=== PATIENT | female | born 1980 | race Caucasian/White ===

== ENCOUNTER 2018-03-03 21:11 | Inpatient (IN) | payer BC ==
--- NOTE | 2018-03-03 21:52 | HP ---
General Information - Reason for Visit IUP at 41 in labor - General Information Maternal Age: 37 Grav: 1 Para: 0 SAB: 0 IEA: 0 Estimated Due Date: 02/22/18 Determined By: LMP Gestational Age in Weeks/Days: 41 Maternal Blood Type and Rh: O Positive - Results this Serology/RPR Result: Non-Reactive Rubella Result: Immune HBsAg Result: Negative HIV Result: Negative GBS Culture Result: Negative Past Medical History Delivery History: See Records Delivery History Comment: primip Pertinent Past Medical History: Non-Contributory Pertinent Past Surgical History: None Family History Comment: Father: A-Fib Mother: HTN Brother: HTN Sister: Endometriosis PGF: . Stroke MGF: . [place] - Antepartal Records Antepartal Records: Reviewed, Uncomplicated Review of Systems Constitutional: Uncomfortable - with UCs CV Complaint: No Respiratory: Shortness of Breath: No Gastrointestinal: No Nausea/Vomiting, Normal Bowel Movement Genitourinary: No Dysuria, No Leaking Fluid, Spotting Musculoskeletal: No Epigastric Pain, Contractions Neurological: No Headache, No Visual Changes Movement: Normal Exam Allergies/Adverse Reactions: Allergies No Known Allergies Allergy (Verified 03/03/18 21:28) BP 154/94, 139/96, 147/84 HR 89 T 98.5 - Measurements Height: 5 ft 6 in Weight: 163 lb Weight in lbs: [id number] Body Mass Index (BMI): 26.3 Pre- Weight: 130 lb Weight Gained This : 33 lbs and 0 ozs - Exam Breast: Breast Exam Deferred CVA: No CVA Tenderness Extremities: No Edema Heart: Normal Rhythm/Heart Sounds HEENT: No Significant Findings Lungs: Clear Bilaterally Rectal: Rectal Exam Deferred Reflexes: DTR 2+ Thyroid: No Thyromegaly - Abdominal Exam Abdomen Exam: Non-Tender - Ultrasound/Biophysical Profile Ultrasound Status: Not Done Targeted Exam Findings See L&D Outpatient Visit Provider Note for Findings: N/A Estimated Weight: EFW 8lbs Cervical Exam: 6cm Effacement: 90% Station: -1 Presenting Part: Vertex Membrane Status: Bulging Sterile Speculum Exam: Not done Bleeding/Discharge: None EFM Findings - External Monitor Findings Baseline Heart Rate: 125 External Monitor Findings: Accelerations Present, No Pattern of Variable or Late Decelerations, Variability Moderate, Baseline Stable External Monitor Findings Comment: No evidence of metabolic acidemia Contractions: Regular, Moderate, Strong, >90 Seconds Contraction Frequency: q 2-4 min Assessment/Plan - Assessment IUP at 41-2/7 in labor No evidence of metabolic acidemia Elevated BP of unknown significance - Obstetrical Risk Factors Obstetrical Risk Factors: Post-Dates - Plan Plan: Observe Plan Comment: P: Admit. BP labs. Pt desires minimal intervention. Expectant management for now. Anticipate - Date/Time of Admission Date of Admission: 03/03/18 Time of Admission: 21:52
[2018-03-03 22:20] LABS: ABS Basophils 0.1 10^3/ul (0-0.2); ABS Eosinophils 0 10^3/ul (0-0.6); ABS Lymphocytes 2.1 10^3/ul (1.0-4.8); ABS Monocytes 0.7 10^3/ul (0-0.8); ABS Neutrophils 17.5 10^3/ul (1.5-7.7); ABS Nucleated RBC 0 10^3/ul; Eosinophil % 0.1 % (0-6); Hematocrit 36 % (35-47); Hemoglobin 11.5 g/dl (12.0-16.0); Lymphocyte % 10.3 % (25-47); Mean Corpuscular HGB Conc 32 g/dl (31-36); Mean Corpuscular Hemoglobin 26 pg (27-31); Mean Corpuscular Volume 82 fL (80-97); Mean Platelet Volume 11.6 fL (7.4-10.4); Nucleated Red Blood Cells % 0.1; Platelet Count 203 10^3/ul (150-450); Red Blood Count 4.37 10^6/ul (4.00-5.40); Red Cell Distribution Width 14 % (10.5-15); White Blood Count 20.5 10^3/ul (3.5-10.8)
[2018-03-03 22:29] LABS: INR 0.8 (0.77-1.02)
[2018-03-03 22:36] LABS: EGFR Non-African American 92.6 (>60); Uric Acid 4.4 mg/dL (2.3-6.6)
[2018-03-03 23:10] LABS: Urine Appearance Cloudy; Urine Blood 3+ (Negative); Urine Color Yellow; Urine Ketones Trace (Negative); Urine Protein 2+(100 mg/dL) (Negative); Urine Red Blood Cell 3+(>10/hpf) (Absent); Urine Specific Gravity 1.021 (1.010-1.030); Urine Urobilinogen Negative (Negative); Urine White Blood Cell 1+(6-10/hpf) (Absent)
[2018-03-04] MEDS ORDERED: Glycerin ADULT SUPP PR PRN (01:41)
[2018-03-04] MEDS ORDERED: OXYTOCIN* 10 UNITS/ML 1 ML VIAL IM ONE (01:41)
[2018-03-04] MEDS ORDERED: Witch Hazel PAD* JAR TOPICAL PRN (01:41)
[2018-03-04] MEDS ORDERED: Acetaminophen TAB* 325 MG PO PRN (01:41)
[2018-03-04] MEDS ORDERED: Dibucaine 1% 28.35 GM TUBE PR PRN (01:41)
--- NOTE | 2018-03-04 01:59 | PROCNOTE ---
[facility] OB: Delivery Note - Delivery A Date of : 03/04/18 Time of : 00:46 [place] Sex: Female Weight at : 8 lb 10 oz Score 1 Minute: 4 Score 5 Minutes: 6 Gestational Age in Weeks and Days at Delivery: 41 Weeks and 3 Days Delivery Method: Spontaneous Vaginal Labor: Spontaneous Did Patient attempt ?: N/A, No Previous Amniotic Fluid: Clear Estimated Blood Loss: 300 Anesthesia/Analgesia: None Delivered By: Steve Oviedo - Nursery Level of Nursery: Special Care - Perineum Perineal Injury: Periurethral Laceration - Left labial split repaired with 4-0 Rapide under local infiltration 1% lidocaine. Pt tolerated well Perineal Repair: By Delivering Practioner - Additional Delivery Notes Additional Delivery Notes: Pt admitted in labor with expected progression to complete. Length of active labor 4 hours, 58 min. Pushed x 1 hour, 2 min. liveborn female. Slow, controlled delivery of head. OA to ASHU. Tight nuchal cord + cord around arm. Unable to reduce. Unable to somersault through. Cord clamped x 2 and cut. Shoulders followed easily. [place] initially stunned. To warmer for evaluation by special care nurse. Apgars 4/6/8. Spontaneous delivery intact placenta. Membranes complete. Fundus firm to massage but atonic when hand removed. 10 units IM pitocin given. Fundus firm to massage and remained firm. Bleeding resolved. Repair as above. EBL 300mL. At time of note mother stable in delivery room. in NICU for further evaluation.
[2018-03-04] MEDS: Docusate CAP* 100 MG PO SCH ×3 (15:44→21:25)
[2018-03-04] MEDS: Ibuprofen TAB* 600 MG PO PRN (21:25)
[2018-03-05 07:05] LABS: ABS Basophils 0.1 10^3/ul (0-0.2); ABS Eosinophils 0.1 10^3/ul (0-0.6); ABS Lymphocytes 3.5 10^3/ul (1.0-4.8); ABS Monocytes 0.7 10^3/ul (0-0.8); ABS Nucleated RBC 0 10^3/ul; Eosinophil % 0.7 % (0-6); Hematocrit 29 % (35-47); Hemoglobin 9.3 g/dl (12.0-16.0); Lymphocyte % 21.1 % (25-47); Mean Corpuscular HGB Conc 33 g/dl (31-36); Mean Corpuscular Hemoglobin 27 pg (27-31); Mean Corpuscular Volume 82 fL (80-97); Mean Platelet Volume 10.9 fL (7.4-10.4); Nucleated Red Blood Cells % 0.1; Platelet Count 160 10^3/ul (150-450); Red Blood Count 3.48 10^6/ul (4.00-5.40); Red Cell Distribution Width 14 % (10.5-15); White Blood Count 16.5 10^3/ul (3.5-10.8)
[2018-03-05] MEDS: Simethicone TAB* 80 MG TAB.CHEW PO SCH (07:12)
[2018-03-05] MEDS: Ibuprofen TAB* 600 MG PO PRN (07:35)
[2018-03-05] MEDS: Docusate CAP* 100 MG PO SCH ×3 (07:36→20:34)
[2018-03-05] MEDS: Ferrous Gluconate TAB* 324 MG TAB PO SCH ×2 (07:59→20:34)
[2018-03-05 22:58] VITALS: BP 132/86
[2018-03-06] MEDS: Docusate CAP* 100 MG PO SCH (08:29)
[2018-03-06] MEDS: Ferrous Gluconate TAB* 324 MG TAB PO SCH (08:29)
== END 2018-03-06 15:45 | disposition home or self-care (01) | DRG 560 ==
LOC: MCHOBOUT 21:11 → MCHOB 21:42
PROVIDERS: ADMIT Midwife; ATTEND Midwife
PROC: 10E0XZZ Delivery of Products of Conception, External Approach (ICD-10-PCS; principal; 2018-03-04)
PROC: 0HQ9XZZ Repair Perineum Skin, External Approach (ICD-10-PCS; 2018-03-04)
DX: O48.0 Post-term pregnancy (principal); Z37.0 Single live birth; O70.0 First degree perineal laceration during delivery; O69.81X0 Labor and delivery complicated by cord around neck, without compression, not applicable or unspecified; O69.89X0 Labor and delivery complicated by other cord complications, not applicable or unspecified; O90.81 Anemia of the puerperium; D64.9 Anemia, unspecified; Z3A.41 41 weeks gestation of pregnancy
CPT/HCPCS: 36415; 80053; 81003; 81015; 84550; 85025; 85610; 85730; 86850; 86900; 86901; 87086; A9270-GY; J2590